=== PATIENT | female | born 1945 | race Caucasian/White ===

== ENCOUNTER → 2018-05-10 | Outpatient (CLI) | payer MEDICARE, OTHER ==
[~2018-05-10] MED LIST: Aspirin EC81 MG PO; CHOL10002 PO; METF500 PO; Nitroglycerin0.4 MG; PROP80ER PO; SIMV10 PO; TIROSINT50 MCG PO; TRIHYD253A PO
== END | disposition home or self-care (01) ==
LOC: PLD 11:41 → LAB SHORT 11:41
DX: D48.5 Neoplasm of uncertain behavior of skin (principal)
CPT/HCPCS: 88305